=== PATIENT | male | born 1965 | race Caucasian/White ===

== ENCOUNTER 2019-09-09 05:48 | Day surgery (SDC) | payer BC ==
[2019-09-01 15:13] LABS: BASOPHILS % (AUTO) 0.4 % (0-1); EOSINOPHILS % (AUTO) 0.7 % (0-6); LYMPHOCYTES # (AUTO) 1.1 X10'3 (1.1-4.8); LYMPHOCYTES % (AUTO) 17.9 % (21-51); MEAN CORPUSCULAR HEMOGLOBIN 30.8 PG (27.0-31.0); MEAN CORPUSCULAR HGB CONC 33.6 g/dL (33.0-36.5); MEAN CORPUSCULAR VOLUME 91.6 FL (78-98); MEAN PLATELET VOLUME 11.3 FL (7.4-10.4); MONOCYTES # (AUTO) 0.4 X10'3 (0-0.9); NEUTROPHILS # (AUTO) 4.4 X10'3 (1.8-7.7); PRE OP HEMATOCRIT 45.6 % (42.0-52.0); PRE OP HEMOGLOBIN 15.3 g/dL (14.0-17.9); PRE OP PLATELET COUNT 113 X10'3 (140-440); RED BLOOD COUNT 4.98 X10'6 (4.70-6.10); RED CELL DISTRIBUTION WIDTH 13.5 % (11.5-14.5)
[2019-09-01 15:25] LABS: PRE OP PROTIME 10.7 SECONDS (9.0-12.0)
[2019-09-01 15:28] LABS: ALBUMIN 4.1 G/DL (3.4-5.0); ALBUMIN/GLOBULIN RATIO 1.5 (1.1-1.5); ALKALINE PHOSPHATASE 64 IU/L (46-116); BLOOD UREA NITROGEN 14 MG/DL (7-18); BUN/CREATININE RATIO 12.6 (5.4-32.0); CALCIUM 9.3 MG/DL (8.5-10.1); CHLORIDE 109 MMOL/L (99-107); CREATININE 1.11 MG/DL (0.60-1.10); PRE OP ALT 62 U/L (30-65); PRE OP ANION GAP 6 (8-16); PRE OP AST 33 U/L (10-37); PRE OP BILIRUB, TOTAL 0.6 MG/DL (0.0-1.0); PRE OP GLUCOSE 92 MG/DL (70-104); PRE OP POTASSIUM 4.1 MMOL/L (3.4-5.1); PRE OP SODIUM 143 MMOL/L (135-145); TOTAL CARBON DIOXIDE 28.3 MMOL/L (24-32); TOTAL PROTEIN 6.9 G/DL (6.4-8.2); eGFR 69 ML/MIN
[2019-09-01 15:31] LABS: LARGE PLATELETS FEW; PLATELET ESTIMATE DECREASED
[~2019-09-09] VITALS: Ht 175.3 cm; Wt 97.5 kg
[2019-09-09] VITALS (17 sets, daily range): BP systolic 92–123; BP diastolic 51–75
[~2019-09-09 05:48] MED LIST: CYAN-51 PO; EZET10TA48 PO; MELO-102 PO; ROSU20TA31 PO; TADA10TA14 PO; TRANEXAMIC ACID 1 GM IN NACL,ISO-OS 100 ML IV ONE; cefazolin/dext.iso 2gm/100ml 100 ML IV ONE; famotidine 20mg tablet PO ONE; ringers solution, lacted 1,000 ML IV SCH; tranexamic acid 1gm/0.7% sal. 100 ML IV ONE; vancomycin 1,500 MG in NS 500ml IV soln IV ONE
[2019-09-09] MEDS ORDERED: LIDOcaine 1% (10mg/ml) 2ml vial ONE (06:06)
[2019-09-09] MEDS ORDERED: ROPIVAcaine 0.5% (5mg/ml) 30ml vial ONE ×2 (07:47→08:46)
[2019-09-09] MEDS ORDERED: ringers solution, lacted 1,000 ML IV SCH (07:59)
[2019-09-09] MEDS ORDERED: morphine 4 MG/ML inj SYRINge IV PRN (08:00)
[2019-09-09] MEDS ORDERED: ondansetron/PF 4mg/2ml inj IV PRN (08:00)
[2019-09-09] MEDS ORDERED: proCHLORperazine 10 MG/2 ml inj IV PRN (08:00)
[2019-09-09] MEDS ORDERED: meperidine/PF 25mg/ml syringe IV PRN ×3 (08:00)
[2019-09-09] MEDS ORDERED: morphine 2 MG/ML inj. syringe IV PRN (08:00)
[2019-09-09] MEDS ORDERED: fentaNYL/PF 50MCG/1 ML 2ML syringe ONE (08:45)
[2019-09-09] MEDS ORDERED: MIDAZolam 5mg/5ml vial ONE (08:45)
[2019-09-09] MEDS ORDERED: propofol inj 20 ML IV ONE (08:46)
[2019-09-09] MEDS ORDERED: LIDOcaine 2% (20mg/ml) 5ml vial ONE (08:46)
[2019-09-09] MEDS ORDERED: dexamethasone sod phosphate 10mg/ml inj ONE (08:55)
[2019-09-09] MEDS ORDERED: cloNIDine hcl/PF 100mcg/ml inj ONE (08:55)
[2019-09-09] MEDS ORDERED: glycopyrrolate 0.2mg/ml inj ONE (08:55)
[2019-09-09] MEDS ORDERED: neostigmine methylsulfate 1 MG/ML 10ml vial ONE (08:55)
[2019-09-09] MEDS ORDERED: sevoflurane 250ml liquid IH ONE (08:55)
[2019-09-09] MEDS ORDERED: ondansetron/PF 4mg/2ml inj ONE (09:36)
[2019-09-09] MEDS ORDERED: ketorolac trometh. 30mg/ml inj. ONE (09:37)
[2019-09-09] MEDS ORDERED: ROPIVAcaine 0.2%/PF PUMP/bolus 550 ML INTERSCALE SCH (10:00)
[2019-09-09] MEDS ORDERED: ROPIVAcaine 0.2%/PF PUMP/bolus 550 ML ADDCANAL SCH (10:00)
[2019-09-09] MEDS ORDERED: ROPIVAcaine 0.2% (10 MG/5 ML) BOLUS INJECTION ADDCANAL PRN (10:00)
[2019-09-09] MEDS ORDERED: HYDROcodone/acetaminophen 10/325mg tab PO PRN (11:35)
--- NOTE | 2019-09-09 11:38 | NUR ---
Received from OR via , accompanied by Anesthesiologist DR CARLOS and report given by Anesthesiolgist. AWAKENS TO VOICE. VITALS STABLE. DRESSING DI. LESTER PAIN. FINGERS WARM AND PINK. LUE IN SIMPLE SLING.
--- NOTE | 2019-09-09 12:58 | NUR ---
Report called to receiving nurse. Transferred via BED Belongings . Special Issues communicated to receiving nurse. AWAKE AND ORIENTED. VITALS STABLE. DRESSING DI. LESTER PAIN. TO U RM 3020 AT [facility] TIME.
[2019-09-09] MEDS ORDERED: ONQPUMP ADDCANAL (13:51)
--- NOTE | 2019-09-09 17:52 | NUR ---
piv dc, cath tip intact. NA assist pt get dressed.
== END 2019-09-09 18:40 | disposition home or self-care (01) ==
LOC: PAS 05:48 → EDSTATUS 09:30 → PCU 3S 11:32 → PAS 18:40
PROVIDERS: ATTEND Orthopaedic Surgery
DX: M19.012 Primary osteoarthritis, left shoulder (principal); M75.22 Bicipital tendinitis, left shoulder; M75.42 Impingement syndrome of left shoulder; Z79.899 Other long term (current) drug therapy; Z72.89 Other problems related to lifestyle; Z79.01 Long term (current) use of anticoagulants; Z11.59 Encounter for screening for other viral diseases
CPT/HCPCS: 23430; 23472; 36415; 64416; 80053; 82948; 85025; 85610; 85730; 87081; 87635; C1713; C1776; J0735; J1100; J1885; J2001; J2250; J2405; J2704; J2710; J2795; J3010; J3370; J7040; J7120; A4215; A4618; A7000; G0378; J3490